=== PATIENT | male | born 1945 | race Caucasian/White ===

== ENCOUNTER → 2018-01-12 | Outpatient (CLI) | payer MEDICARE, OTHER ==
--- NOTE | 2018-01-12 16:16 | RAD ---
Left knee, 2 views, 01/12/2018: HISTORY: Pain The knee joint space is well maintained. No fracture or dislocation is identified. There is mild subcutaneous edema anteriorly. No large joint effusion is seen. IMPRESSION: No significant bony abnormality is detected. Electronically signed by: Rad Santiago MD (01/12/2018 4:13 PM) [facility]
== END | disposition home or self-care (01) ==
LOC: PMG 11:12
PROVIDERS: ATTEND Family Medicine
DX: M25.562 Pain in left knee (principal); R60.1 Generalized edema
CPT/HCPCS: 73560

== ENCOUNTER → 2018-12-15 | Outpatient (CLI) | payer MEDICARE, OTHER ==
[2018-12-15 08:02] LABS: ALBUMIN 3.2 g/dL (3.4-5.0); CALCIUM 8.9 mg/dL (8.5-10.1); CREATININE 1.5 mg/dL (0.7-1.3); GFR 45.7; POTASSIUM 4.2 mmol/L (3.5-5.1); TOTAL BILIRUBIN 0.6 mg/dL (0.2-1.0); TOTAL PROTEIN 6.5 g/dL (6.4-8.2)
== END | disposition home or self-care (01) ==
LOC: LAB 07:26
PROVIDERS: ATTEND Internal Medicine Cardiovascular Disease
DX: E78.5 Hyperlipidemia, unspecified (principal)
CPT/HCPCS: 36415; 80053; 80061

== ENCOUNTER → 2019-01-04 | Outpatient (CLI) | payer MEDICARE, OTHER ==
--- NOTE | 2019-01-04 08:51 | CARD ---
MR#: [id number] Date of Study: 01/04/2019 Ordering Physician: NELL EDGAR, Referring Physician: NELL EDGAR, Tech: Marry Sanchez [place] APPROVED REPORT EXAM: Two-dimensional and M-mode echocardiogram with Doppler and color Doppler. Other Information Quality : AverageHR: 68bpm Rhythm : NSR INDICATION CAD 2D DIMENSIONS RVDd2.7 (2.9-3.5cm)Left Atrium(2D)2.9 (1.6-4.0cm) IVSd1.5 (0.7-1.1cm)Aortic Root(2D)3.2 (2.0-3.7cm) LVDd4.7 (3.9-5.9cm)LVOT Diameter2.0 (1.8-2.4cm) PWd1.2 (0.7-1.1cm)LVDs3.2 (2.5-4.0cm) FS (%) 32.0 %SV60.2 ml LVEF(%)60.2 (>50%) M-Mode DIMENSIONS Left Atrium(MM)3.16 (2.5-4.0cm)Aortic Root3.40 (2.2-3.7cm) Aortic Valve AoV Peak Sanket.137.2cm/sAoV VTI31.9cm AO Peak GR.7.5mmHgLVOT Peak Sanket.82.8cm/s LVOT VTI 23.50cmAO Mean GR.4mmHg YIMI (VMAX)1.84ff9MXF (VTI)2.34cm2 Mitral Valve MV E Ldcvigtp33.3cm/sMV DECEL NVZA116pp MV A Sqeunfau69.0cm/sE/A Ratio1.0 Pulmonary Valve PV Peak Bkktvvwj76.1cm/sPV Peak Grad.3mmHg Tricuspid Valve TR P. Okjexyck579vp/sRAP WEXSNIPE5osKi TR Peak Gr.93ruPbVOZV69zrCb LEFT VENTRICLE The left ventricle is normal size. There is mild to moderate concentric left ventricular hypertrophy. The left ventricular systolic function is normal. The Ejection Fraction is 55-60%. There is normal L V segmental wall motion. Transmitral Doppler flow pattern is Grade II-pseudonormal filling dynamics. RIGHT VENTRICLE The right ventricle is normal size. There is normal right ventricular wall thickness. The right ventr icular systolic function is normal. ATRIA The left atrium size is normal. The right atrium size is normal. The interatrial septum is intact wit h no evidence for an atrial septal defect or patent foramen ovale as noted on 2-D or Doppler imaging. AORTIC VALVE The aortic valve is mildly thickened. The aortic valve is trileaflet. Doppler and Color Flow revealed no significant aortic regurgitation. There is no significant aortic valvular stenosis. There is no a ortic valvular vegetation. MITRAL VALVE The mitral valve is normal in structure and function. There is no evidence of mitral valve prolapse. There is no mitral valve stenosis. Doppler and Color-flow revealed trace to mild mitral regurgitation . TRICUSPID VALVE The tricuspid valve is normal in structure and function. Doppler and Color Flow revealed trace tricus pid regurgitation. The PA pressure was estimated at 32 mmHg. There is no tricuspid valve prolapse or vegetation. There is no tricuspid valve stenosis. PULMONIC VALVE The pulmonic valve is not well visualized. GREAT VESSELS The aortic root is normal in size. The ascending aorta is normal in size. The IVC is normal in size a nd collapses >50% with inspiration. PERICARDIAL EFFUSION There is no evidence of significant pericardial effusion. Critical Notification Critical Value: No <Conclusion> The left ventricular systolic function is normal. The Ejection Fraction is 55-60%. There is normal LV segmental wall motion. Trace to mild mitral regurgitation. Trace tricuspid regurgitation. The PA pressure was estimated at 32 mmHg. There is no evidence of significant pericardial effusion. Signed by : Chavo Ross, Electronically Approved : 01/04/2019 08:51:02
== END | disposition home or self-care (01) ==
LOC: ECHO 06:28
PROVIDERS: ATTEND Internal Medicine Cardiovascular Disease
DX: I34.0 Nonrheumatic mitral (valve) insufficiency (principal); I51.7 Cardiomegaly; I25.10 Atherosclerotic heart disease of native coronary artery without angina pectoris
CPT/HCPCS: 93306

== ENCOUNTER → 2021-01-03 | Outpatient (CLI) | payer MEDICARE, OTHER ==
--- NOTE | 2021-01-03 16:03 | RAD ---
MR#: [id number] Date of Study: 01/03/2021 Ordering Physician: NELL EDGAR, Referring Physician: MARY HOSKINS Tech: RT Gregorio Luevano) (N) APPROVED REPORT Test Type: Exercise Stress Nurse/Tech: RT Chloé (Cornelius) (N) Test Indications: coronary artery disease Cardiac History: 1 stent 27 years ago Medications: see EHR Medical History: hypertension Resting ECG: sinus rhythm with PVC's Resting Heart Rate: 53 bpm Resting Blood Pressure: 180/74mmHg Pretest Chest Pain: None Nurse/Tech Notes Consent: The procedure was explained to the patient in lay terms. Informed consent was witnessed. Ronaldo eout was entered into [employer]. History and Stress Test performed by RT Gregorio Luevano) (N) POST EXERCISE Reason for Termination: Fatigue Target HR: Yes Max HR: 130 bpm 90% of Maximum Predicted HR: 144 bpm Exercise duration: 5:15 min:sec, 2 Stage Exercise capacity: 7METs Max Blood Pressure: 184/79mmHg INTERPRETATION Stress EKG Conclusion: Baseline EKG showed sinus rhythm. No ischemic changes at peak stress. No arr hythmias. Imaging Protocol IMAGE PROTOCOL: Rest Tc-99m/stress Tc-99m 1 day Rest: Stress: Viability: Radiopharm.Tc99m CcofuqqwdKf08j Sestamibi Dose10.8mCi 32.4mCi Duration 15min. 10min. Img Date 01/03/2021 01/03/2021 Inj-Img [id number]. 60min. Post-Injection Exercise: 1 minute Rest Admin Site:IV - Left AntecubitalAdministrator: RT Chloé (Cornelius)(N) Stress Admin Site: IV - Left AntecubitalAdministrator: RT Gregorio Luevano)(N) STRESS DATA End Diast. Vol.107.0mlAv. Heart Rate74.0bpm End Syst. Vol.28.0mlCO Index BSA0.0L/min Myocardial Tjuj552.0gEject. Rqnsdohx79.0% Stress Rates Pk. Fill Rate1.82EDV/secLVtime Pk. Fill 111.79msec Pk. Empty Rate2.90ESV/secLVtime Pk. Jkeuw414.65msec 1/3 Pk. Fill1.33EDV/sec Stress Scores Regional WT0.00Summed WT0.00 Regional WM0.00Summed WM1.00 Study quality was good. Left Ventricular size was Normal at Rest and Stress. Lung uptake was . Left Ventricular ejection fraction is 74%. The rest and stress images show normal perfusion, normal contraction and thickening. LV Perf. Quant 17 Seg. SSS3.00 17 Seg. SRS5.00 17 Seg. SDS1.00 Stress Defect Extent (% LAD)0.00Rest Defect Extent (% LAD)1.30Rev. Defect Extent (% LAD)0.00 Stress Defect Extent (% LCX) 10.00Rest Defect Extent (% LCX)16.30Rev. Defect Extent (% LCX)0.00 Stress Defect Extent (% RCA)0.00Rest Defect Extent (% RCA)0.00Rev. Defect Extent (% RCA)0.00 Stress Defect Extent (% STORMY)2.60Rest Defect Extent (% STORMY)6.50Rev. Defect Extent (% STORMY)0.00 Conclusion 1. Treadmill exercise cardioisotope stress test did not show any evidence of ischemia or infarct. 2. Normal left ventricular systolic function with ejection fraction calculated at 74%. 3. Low risk for cardiac events. Signed by : Chavo Ross, Electronically Approved : 01/03/2021 16:02:45
== END ==
LOC: NM 07:25
PROVIDERS: ATTEND Internal Medicine Cardiovascular Disease
DX: I25.10 Atherosclerotic heart disease of native coronary artery without angina pectoris (principal)
CPT/HCPCS: 78452; 93017; A9500; 96376